=== PATIENT | female | born 1960 | race Caucasian/White ===

== ENCOUNTER 2020-08-26 16:53 | Emergency (ER) | payer SELFPAY ==
--- NOTE | 2020-08-26 18:13 | RAD ---
2 VIEWS LEFT ELBOW: Date: 08/26/2020 COMPARISON: None. HISTORY: Slip and fall with elbow pain. FINDINGS: Two views of the left elbow shows a fracture of the olecranon with overlying soft tissue swelling. No dislocation is seen. There is a small elbow effusion. IMPRESSION: Olecranon fracture of the proximal ulna. POS: [facility]
== END 2020-08-26 18:45 | disposition home or self-care (01) ==
LOC: ERS 16:53
DX: S52.022A Displaced fracture of olecranon process without intraarticular extension of left ulna, initial encounter for closed fracture (principal); W01.0XXA Fall on same level from slipping, tripping and stumbling without subsequent striking against object, initial encounter